=== PATIENT | female | born 1995 | race Caucasian/White ===

== ENCOUNTER 2019-12-21 23:08 | Outpatient (CLI) | payer SELFPAY ==
[2019-12-21 23:39] VITALS: BP 119/71
== END 2019-12-22 00:33 | disposition home or self-care (01) ==
LOC: TRG 23:08 → APU 23:10 → TRG 12-22 00:33
PROVIDERS: ATTEND Obstetrics & Gynecology
DX: O47.02 False labor before 37 completed weeks of gestation, second trimester (principal); Z3A.37 37 weeks gestation of pregnancy
CPT/HCPCS: 59025